=== PATIENT | female | born 1945 | race Caucasian/White ===

== ENCOUNTER → 2016-09-17 | Outpatient (CLI) | payer OTHER ==
[~2016-09-17] MED LIST: ATENOLOL50 MG PO; FLEXERIL10 MG PO; IBUPROFEN600 MG PO; KLONOPIN0.5 MG PO; LISINOPRIL20 MG PO; PHENERGAN25 M1 PO; TRAMADOL HCL50 M1 PO
--- NOTE | ~2016-09-17 | CR63 ---
[facility] A Service of [facility] & [facility] RADIOLOGY TEXT RESULTS PATIENT: JAIMIE DURÁN LOCATION: [facility] : 47 UNIT #: [id number] AGE: [address]: Myra Mart MD SEX: F ORDER DR: [id number] [facility] [address] [place], [place] [address] [id number] O MR#: [id number] Acc #: [id number] NAME: JAIMIE DURÁN : 1945 SEX: F STUDY DATE/TIME: 09/17/2016 12:27 UNIT: [facility] ROOM: STUDY DESCRIPTION: CR Chest 2 View Attending Physician: Myra Mart M.D. Referring Physician: Myra Mart M.D. Ordering Physician: Myra Mart M.D. Primary Care Physician: Myra Mart M.D. MEDICAL IMAGING REPORT This report is preliminary unless electronic signature is present EXAM Chest, 09/17/2016, [facility]. HISTORY 71-year-old woman, short of air with lower extremity edema for the past [id number]-nm-isnth weeks. COMPARISON Chest, 05/02/2014. FINDINGS Two-view chest demonstrates mild stable cardiomegaly. Calcified left hilar node unchanged. Hilar structures otherwise preserved. Bilateral lungs are clear. Costophrenic angles are preserved. I see no infiltrate, edema, congestion or mass. There is no indication of effusion. IMPRESSION Mild stable cardiac enlargement. No acute chest finding. Dictated by... Rodrigo Mahmood M.D. THIS IS AN ELECTRONICALLY VERIFIED REPORT Rodrigo Mahmood M.D. at 09/18/2016 8:05 AM LUIS ENRIQUE/sindhu TD: 09/17/2016 18:46 JOB #: [id number] MEDICAL IMAGING REPORT Page 1 of 1 COPY
== END | disposition home or self-care (01) ==
LOC: CRAD 12:12
DX: R60.1 Generalized edema (principal); I51.7 Cardiomegaly
CPT/HCPCS: 71020